=== PATIENT | female | born 1985 | race Caucasian/White ===

== ENCOUNTER 2016-05-08 15:28 | Emergency (ER) | payer OTHER ==
[2016-05-08] MEDS ORDERED: SODIUM CHLORIDE 0.9% 1,000 ML ONE (17:07)
[2016-05-08] MEDS ORDERED: KETOROLAC 30 MG/ML VIAL ONE (17:07)
== END 2016-05-08 18:49 | disposition home or self-care (01) ==
LOC: ER 15:28
DX: N30.00 Acute cystitis without hematuria (principal)
CPT/HCPCS: 36415; 74176; 80053; 81001; 83690; 84703; 85025; 87088; 96361; 96374